=== PATIENT | female | born 1955 | race Caucasian/White ===

== ENCOUNTER 2016-12-11 09:33 | Emergency (ER) | payer BC ==
--- NOTE | 2016-12-11 09:45 | ED ---
General Adult HPI - General Chief complaint: Arrhythmia/Palpitations Stated complaint: HEART RACING, DIZZINESS Time Seen by Provider: 12/11/16 09:44 Source: patient, RN notes reviewed, old records reviewed Mode of arrival: ambulatory Limitations: no limitations - History of Present Illness Initial comments: This is a 61-year-old female the ER for evaluation. This patient presents here today for evaluation of racing heart. Patient feels like her heart is beating her chest, thumping, dehydrated. Patient does admit to alcohol use last night and daily. Patient denies any history of hypertension and cholesterol diabetes no prior ER visits for any issues, no chest pain, no shortness of breath. Patient states main issues is that her heart is racing. She can feel being her chest, palpitations, she denies any increased anxiety, no other drug abuse - Related Data Home Medications Medication Instructions Recorded Confirmed No Known Home Medications [No 12/11/16 12/11/16 Known Home Medications] Allergies Allergy/AdvReac Type Severity Reaction Status Date / Time No Known Allergies Allergy Verified 12/11/16 10:11 Review of Systems ROS Statement: Those systems with pertinent positive or pertinent negative responses have been documented in the HPI. ROS Other: All systems not noted in ROS Statement are negative. Past Medical History Past Medical History: No Reported History History of Any Multi-Drug Resistant Organisms: None Reported Past Surgical History: Section, Hysterectomy Past Psychological History: No Psychological Hx Reported Smoking Status: Current every day smoker Past Alcohol Use History: Daily Past Drug Use History: None Reported General Exam Limitations: no limitations General appearance: alert, in no apparent distress Head exam: Present: atraumatic, normocephalic, normal inspection Eye exam: Present: normal appearance, PERRL, EOMI. Absent: scleral icterus, conjunctival injection, periorbital swelling ENT exam: Present: mucous membranes dry Neck exam: Present: normal inspection. Absent: tenderness, meningismus, lymphadenopathy Respiratory exam: Present: normal lung sounds bilaterally. Absent: respiratory distress, wheezes, rales, rhonchi, stridor Cardiovascular Exam: Present: normal rhythm, tachycardia, normal heart sounds. Absent: systolic murmur, diastolic murmur, rubs, gallop, clicks GI/Abdominal exam: Present: soft, normal bowel sounds. Absent: distended, tenderness, guarding, rebound, rigid Extremities exam: Present: normal inspection, full ROM, normal capillary refill. Absent: tenderness, pedal edema, joint swelling, calf tenderness Back exam: Present: normal inspection Neurological exam: Present: alert, oriented X3, CN II-XII intact Psychiatric exam: Present: normal affect, normal mood Skin exam: Present: warm, dry, intact, normal color. Absent: rash Course Vital Signs 12/11/16 12/11/16 12/11/16 09:40 09:43 10:45 Temperature 97.5 F L Pulse Rate 117 H 100 Pulse Rate [ 117 H Operations Section Manager ] Respiratory 18 18 Rate Blood Pressure 149/70 143/69 O2 Sat by Pulse 97 98 Oximetry 12/11/16 12/11/16 11:40 12:27 Temperature 97.7 F Pulse Rate 94 97 Pulse Rate [ Operations Section Manager ] Respiratory 18 17 Rate Blood Pressure 139/76 146/66 O2 Sat by Pulse 98 98 Oximetry EKG Findings - EKG Comments: EKG Findings:: EKG shows sinus tachycardia rate 116, [place] 96, QRS 70, QTC 447 Medical Decision Making - Medical Decision Making 61 female the ER for palpitations, positive anxiety, heart racing, though symptoms have abated, patient will be discharged home - Lab Data Result diagrams: 12/11/16 09:49 12/11/16 09:49 Lab Results 12/11/16 12/11/16 12/11/16 Range/Units 09:49 09:49 09:49 WBC 10.6 (3.8-10.6) k/uL RBC 4.63 (3.80-5.40) m/uL Hgb 15.8 (11.4-16.0) gm/dL Hct 45.2 (34.0-46.0) % MCV 97.5 (80.0-100.0) fL MCH 34.0 (25.0-35.0) pg MCHC 34.9 (31.0-37.0) g/dL RDW 12.4 (11.5-15.5) % Plt Count 297 (150-450) k/uL Neutrophils % 65 % Lymphocytes % 29 % Monocytes % 3 % Eosinophils % 1 % Basophils % 1 % Neutrophils # 6.9 (1.3-7.7) k/uL Lymphocytes # 3.1 (1.0-4.8) k/uL Monocytes # 0.3 (0-1.0) k/uL Eosinophils # 0.1 (0-0.7) k/uL Basophils # 0.1 (0-0.2) k/uL PT (9.0-12.0) sec INR (<1.1) APTT (22.0-30.0) sec D-Dimer (<0.60) mg/L FEU Sodium 141 (137-145) mmol/L Potassium 4.1 (3.5-5.1) mmol/L Chloride 106 (98-107) mmol/L Carbon Dioxide 19 L (22-30) mmol/L Anion Gap 16 mmol/L BUN 13 (7-17) mg/dL Creatinine 0.69 (0.52-1.04) mg/dL Est GFR (MDRD) Af Amer >60 (>60 ml/min/1.73 sqM) Est GFR (MDRD) Non-Af >60 (>60 ml/min/1.73 sqM) Glucose 62 L (74-99) mg/dL Calcium 9.8 (8.4-10.2) mg/dL Phosphorus 3.8 (2.5-4.5) mg/dL Magnesium 1.8 (1.6-2.3) mg/dL Total Bilirubin 0.8 (0.2-1.3) mg/dL AST 23 (14-36) U/L ALT 30 (9-52) U/L Alkaline Phosphatase 60 (38-126) U/L Total Creatine Kinase 63 (30-135) U/L CK-MB (CK-2) 0.5 (0.0-2.4) ng/mL CK-MB (CK-2) Rel Index 0.8 Troponin I <0.012 (0.000-0.034) ng/mL Total Protein 7.6 (6.3-8.2) g/dL Albumin 4.5 (3.5-5.0) g/dL Lipase 125 (23-300) U/L TSH 0.477 (0.465-4.680) mIU/L Urine Color Urine Appearance (Clear) Urine pH (5.0-8.0) Ur Specific [place] (1.001-1.035) Urine Protein (Negative) Urine Glucose (UA) (Negative) Urine Ketones (Negative) Urine Blood (Negative) Urine Nitrite (Negative) Urine Bilirubin (Negative) Urine Urobilinogen (<2.0) mg/dL Ur Leukocyte Esterase (Negative) Urine RBC (0-5) /hpf Urine WBC (0-5) /hpf Ur Squamous Epith Cells (0-4) /hpf Urine Mucus (None) /hpf Serum Alcohol <10 mg/dL 12/11/16 12/11/16 Range/Units 09:49 10:40 WBC (3.8-10.6) k/uL RBC (3.80-5.40) m/uL Hgb (11.4-16.0) gm/dL Hct (34.0-46.0) % MCV (80.0-100.0) fL MCH (25.0-35.0) pg MCHC (31.0-37.0) g/dL RDW (11.5-15.5) % Plt Count (150-450) k/uL Neutrophils % % Lymphocytes % % Monocytes % % Eosinophils % % Basophils % % Neutrophils # (1.3-7.7) k/uL Lymphocytes # (1.0-4.8) k/uL Monocytes # (0-1.0) k/uL Eosinophils # (0-0.7) k/uL Basophils # (0-0.2) k/uL PT 10.3 (9.0-12.0) sec INR 1.0 (<1.1) APTT 21.8 L (22.0-30.0) sec D-Dimer <0.17 (<0.60) mg/L FEU Sodium (137-145) mmol/L Potassium (3.5-5.1) mmol/L Chloride (98-107) mmol/L Carbon Dioxide (22-30) mmol/L Anion Gap mmol/L BUN (7-17) mg/dL Creatinine (0.52-1.04) mg/dL Est GFR (MDRD) Af Amer (>60 ml/min/1.73 sqM) Est GFR (MDRD) Non-Af (>60 ml/min/1.73 sqM) Glucose (74-99) mg/dL Calcium (8.4-10.2) mg/dL Phosphorus (2.5-4.5) mg/dL Magnesium (1.6-2.3) mg/dL Total Bilirubin (0.2-1.3) mg/dL AST (14-36) U/L ALT (9-52) U/L Alkaline Phosphatase (38-126) U/L Total Creatine Kinase (30-135) U/L CK-MB (CK-2) (0.0-2.4) ng/mL CK-MB (CK-2) Rel Index Troponin I (0.000-0.034) ng/mL Total Protein (6.3-8.2) g/dL Albumin (3.5-5.0) g/dL Lipase (23-300) U/L TSH (0.465-4.680) mIU/L Urine Color Yellow Urine Appearance Clear (Clear) Urine pH 5.0 (5.0-8.0) Ur Specific [place] 1.020 (1.001-1.035) Urine Protein Trace H (Negative) Urine Glucose (UA) Negative (Negative) Urine Ketones 2+ H (Negative) Urine Blood Trace H (Negative) Urine Nitrite Negative (Negative) Urine Bilirubin Negative (Negative) Urine Urobilinogen <2.0 (<2.0) mg/dL Ur Leukocyte Esterase Negative (Negative) Urine RBC 1 (0-5) /hpf Urine WBC 1 (0-5) /hpf Ur Squamous Epith Cells 2 (0-4) /hpf Urine Mucus Rare H (None) /hpf Serum Alcohol mg/dL Disposition Clinical Impression: Palpitations, Dehydration Disposition: HOME SELF-CARE Instructions: Palpitations (ED), Dehydration (ED) Referrals: Nicole Garcia MD [Primary Care Provider] - 1-2 days
[2016-12-11] MEDS ORDERED: SODIUM CHLORIDE 0.9% 1,000 ML IV STA ×2 (09:54)
[2016-12-11] MEDS ORDERED: LORazepam 2 MG/ML SYRINGE IV STA (09:54)
[2016-12-11 10:24] LABS: Basophils # (A) 0.1 k/uL (0-0.2); Basophils % (A) 1 %; CH 33.8; CHCM 34.8; Eosinophils # (A) 0.1 k/uL (0-0.7); Eosinophils % (A) 1 %; HCT 45.2 % (34.0-46.0); HDW 2.36; HGB 15.8 gm/dL (11.4-16.0); Luc # (Auto) 0.21; Luc % (Auto) 2; Lymphocytes # (A) 3.1 k/uL (1.0-4.8); Lymphocytes % (A) 29 %; MCHC 34.9 g/dL (31.0-37.0); MCV 97.5 fL (80.0-100.0); Mean Platelet Volume 6.7; Monocytes # (A) 0.3 k/uL (0-1.0); Monocytes % (A) 3 %; Neutrophils # (A) 6.9 k/uL (1.3-7.7); Neutrophils % (A) 65 %; RBC 4.63 m/uL (3.80-5.40); RDW 12.4 % (11.5-15.5); WBC 10.6 k/uL (3.8-10.6); WBC (Perox) 10.61
[2016-12-11 10:36] LABS: ALT 30 U/L (9-52); AST 23 U/L (14-36); Alcohol <10 mg/dL; Alkaline Phosphatase 60 U/L (38-126); Anion Gap 16 mmol/L; Blood Urea Nitrogen 13 mg/dL (7-17); Calcium 9.8 mg/dL (8.4-10.2); Carbon Dioxide 19 mmol/L (22-30); Chloride 106 mmol/L (98-107); Glucose 62 mg/dL (74-99); Magnesium 1.8 mg/dL (1.6-2.3); Non-African American GFR(MDRD) >60 (>60 ml/min/1.73 sqM); Phosphorous 3.8 mg/dL (2.5-4.5); Potassium 4.1 mmol/L (3.5-5.1); Sodium 141 mmol/L (137-145); Total Bilirubin 0.8 mg/dL (0.2-1.3); Total Protein 7.6 g/dL (6.3-8.2)
[2016-12-11 10:39] LABS: Prothrombin Time 10.3 sec (9.0-12.0)
[2016-12-11 10:52] LABS: Partial Thromboplastin Time 21.8 sec (22.0-30.0)
[2016-12-11 10:54] LABS: Creatine Kinase 63 U/L (30-135)
[2016-12-11 11:05] LABS: Appearance,Urine Clear (Clear); Bilirubin,Urine Negative (Negative); Glucose,Urine (UA) Negative (Negative); Ketones,Urine 2+ (Negative); Leukocyte Esterase,Urine Negative (Negative); Mucus,Urine Rare /hpf; Nitrite,Urine Negative (Negative); Particle Count 4949; Protein,Urine Trace (Negative); RBC,Urine 1 /hpf (0-5); Squamous Epithelial Cell,Urine 2 /hpf (0-4); UA Billing (MACRO vs. MICRO) MICRO; Urobilinogen,Urine <2.0 mg/dL (<2.0); WBC,Urine 1 /hpf (0-5)
[2016-12-11 11:07] LABS: Creatine Kinase MB 0.5 ng/mL (0.0-2.4); Troponin I <0.012 ng/mL (0.000-0.034)
[2016-12-11] MEDS ORDERED: SODIUM CHLORIDE 0.9% 1,000 ML IV ONE (11:39)
[2016-12-11 12:28] VITALS: BP 146/66; PULSE 97; RESP 17; TEMP 97.7
== END 2016-12-11 12:27 | disposition home or self-care (01) ==
LOC: EC 09:33
DX: R00.2 Palpitations (principal); E86.0 Dehydration; F17.200 Nicotine dependence, unspecified, uncomplicated
CPT/HCPCS: 99285; 96374; 96361 ×2; 36415; 93005; 85379; 80053; 82550; 82553; 83690; 83735; 84100; 84443; 84484; 85025; 85610; 85730; 81001; 80320; J2060

== ENCOUNTER 2019-09-02 14:38 | Emergency (ER) | payer BC, MEDICARE ==
[2019-09-02 14:47] VITALS: TEMP 98
[2019-09-02] MEDS ORDERED: THIAMINE 100 MG/ML 2 ML VIAL IM STA (16:03)
[2019-09-02] MEDS ORDERED: LORazepam 2 MG/ML INJ IV PRN ×3 (16:03)
--- NOTE | 2019-09-02 16:07 | ED ---
Alcohol HPI - General Source: patient Mode of arrival: ambulatory Limitations: no limitations <Florentino Taylor - Last Filed: 09/02/19 20:13> <Isidro Rascon - Last Filed: 09/02/19 20:27> - General Chief Complaint: Alcohol Stated Complaint: ETOH withdrawal Time Seen by Provider: 09/02/19 14:56 - History of Present Illness Initial Comments: Patient is 64-year-old female with history of alcohol abuse presenting to emergency Department with a chief complaint of alcohol intoxication. She reports her last several years has been dealing with alcoholism. She reports over the last few weeks that she has increased in severity. Patient reports drinking almost daily. She states she woke up this morning and had 2 bottles of wine prior to ED arrival. Patient reports she is seeking further help. She does not see a therapist or psychiatrist. Denies taking any medication. Reports poor appetite and decreased urine output. (Florentino Taylor) - Related Data Home Medications Medication Instructions Recorded Confirmed Brimonidine Tartrate [Alphagan P 1 drops BOTH EYES DAILY 09/02/19 09/02/19 0.1% Ophth Soln] Clotrimazole/Betameth Cream 1 applic TOPICAL BID 09/02/19 09/02/19 [Lotrisone] Allergies Allergy/AdvReac Type Severity Reaction Status Date / Time No Known Allergies Allergy Verified 09/02/19 15:55 Review of Systems ROS Other: All systems not noted in ROS Statement are negative. <Florentino Taylor - Last Filed: 09/02/19 20:13> ROS Other: All systems not noted in ROS Statement are negative. <Isidro Rascon - Last Filed: 09/02/19 20:27> ROS Statement: Those systems with pertinent positive or pertinent negative responses have been documented in the HPI. Past Medical History Past Medical History: Hypertension History of Any Multi-Drug Resistant Organisms: None Reported Past Surgical History: Section, Hysterectomy Additional Past Surgical History / Comment(s): left foot Past Psychological History: No Psychological Hx Reported Smoking Status: Current every day smoker Past Alcohol Use History: Abuse, Daily, Heavy Past Drug Use History: None Reported <Florentino Taylor - Last Filed: 09/02/19 20:13> General Exam Limitations: no limitations General appearance: alert, in no apparent distress Head exam: Present: atraumatic, normocephalic, normal inspection Eye exam: Present: normal appearance, PERRL, EOMI Pupils: Present: normal accommodation ENT exam: Present: normal exam, normal oropharynx, mucous membranes dry, TM's normal bilaterally, normal external ear exam Neck exam: Present: normal inspection, full ROM Respiratory exam: Present: normal lung sounds bilaterally Cardiovascular Exam: Present: normal rhythm, tachycardia, normal heart sounds GI/Abdominal exam: Present: soft. Absent: distended, tenderness Extremities exam: Present: normal inspection, full ROM Back exam: Present: normal inspection, full ROM Neurological exam: Present: alert, oriented X3 Psychiatric exam: Present: normal affect, normal mood Skin exam: Present: warm, dry, intact, normal color <Florentino Taylor - Last Filed: 09/02/19 20:13> Course Vital Signs 09/02/19 09/02/19 09/02/19 14:42 15:10 17:05 Temperature 98.0 F Pulse Rate 125 H 98 Respiratory 20 24 15 Rate Blood Pressure 125/84 166/100 O2 Sat by Pulse 97 97 Oximetry 09/02/19 18:00 Temperature Pulse Rate 111 H Respiratory 20 Rate Blood Pressure 152/98 O2 Sat by Pulse 96 Oximetry Medical Decision Making <Florentino Taylor - Last Filed: 09/02/19 20:13> <Isidro Rascon - Last Filed: 09/02/19 20:27> - Medical Decision Making Patient is 64-year-old female with history of alcoholism presenting to the emergency department with a chief complaint alcohol intoxication. Patient states she wants help to begin rehab. Denies any suicidal, homicidal thoughts or ideations. Physical examination unremarkable aside from very mild tremor. Patient has a BAT of 0.150 . Patient waiting to be evaluated by EPS when sober. At this time patient will be signed off to Dr. Rascon (Florentino Taylor) Patient care signed out to me by previous shift physician construction project assistant, Florentino Taylor. Briefly, patient is an alcoholic presents today with alcohol intoxication. Plan at follow-up with EPS recommendations. Patient is not suicidal homicidal or showing any psychotic features. She does not have any visual or auditory hallucinations. Patient's, cooperative. Patient is evaluated by EPS given outpatient resources. Patient will be discharged. (Isidro Lyman) Disposition <Florentino Taylor - Last Filed: 09/02/19 20:13> Is patient prescribed a controlled substance at d/c from ED?: No Time of Disposition: 20:27 <Isidro Rascon - Last Filed: 09/02/19 20:27> Clinical Impression: Alcoholic intoxication Disposition: HOME SELF-CARE Condition: Good Instructions (If sedation given, give patient instructions): Alcohol Intoxication (ED) Referrals: Nicole Garcia MD [Primary Care Provider] - 1-2 days
[2019-09-02 20:40] VITALS: BP 161/85; PULSE 120; RESP 18
[2019-09-03] MEDS ORDERED: THIAMINE 100 MG TAB PO SCH (07:30)
== END 2019-09-02 21:15 | disposition home or self-care (01) ==
LOC: EC 14:38
DX: F10.129 Alcohol abuse with intoxication, unspecified (principal); I10 Essential (primary) hypertension; F17.200 Nicotine dependence, unspecified, uncomplicated
CPT/HCPCS: 82075; 99284; 96374; 96372; J2060; J3411

== ENCOUNTER 2021-02-02 19:40 | Emergency (ER) | payer MEDICARE, OTHER ==
[2021-02-02 19:58] VITALS: TEMP 97.8
[2021-02-02] MEDS ORDERED: SODIUM CHLORIDE 0.9% 1,000 ML IV ONE (20:14)
--- NOTE | 2021-02-02 20:22 | ED ---
General Adult HPI - General Chief complaint: Arrhythmia/Palpitations Stated complaint: Fast heart rate Time Seen by Provider: 02/02/21 20:00 Source: patient, family, RN notes reviewed, old records reviewed Mode of arrival: wheelchair Limitations: no limitations - History of Present Illness Initial comments: 66-year-old presenting with racing heart. Patient denies chest pain. Denies difficulty breathing or shortness of breath. Denies fever. Denies lower extremity pain or swelling. Patient states she has had some similar symptoms in the past. She does feel dehydrated all she states she has been drinking plenty of water. No vomiting or diarrhea. Patient takes Norvasc for blood pressure, no other prescription medications. She does drink alcohol daily but states she has typically 2 drinks. - Related Data Home Medications Medication Instructions Recorded Confirmed Brimonidine Tartrate [Alphagan P 1 drops BOTH EYES DAILY 09/02/19 09/02/19 0.1% Ophth Soln] Clotrimazole/Betameth Cream 1 applic TOPICAL BID 09/02/19 09/02/19 [Lotrisone] Allergies Allergy/AdvReac Type Severity Reaction Status Date / Time No Known Allergies Allergy Verified 02/02/21 19:54 Review of Systems ROS Statement: Those systems with pertinent positive or pertinent negative responses have been documented in the HPI. ROS Other: All systems not noted in ROS Statement are negative. Past Medical History Past Medical History: Hypertension History of Any Multi-Drug Resistant Organisms: None Reported Past Surgical History: Section, Hysterectomy, Orthopedic Surgery Additional Past Surgical History / Comment(s): left foot Past Psychological History: Anxiety, Depression Smoking Status: Current every day smoker Past Alcohol Use History: Abuse, Daily, Heavy Past Drug Use History: None Reported General Exam Limitations: no limitations General appearance: alert, anxious Head exam: Present: atraumatic, normocephalic Eye exam: Present: normal appearance, PERRL ENT exam: Present: mucous membranes dry Neck exam: Present: normal inspection. Absent: tenderness, meningismus Respiratory exam: Present: normal lung sounds bilaterally. Absent: respiratory distress, wheezes Cardiovascular Exam: Present: normal rhythm, tachycardia GI/Abdominal exam: Present: soft. Absent: distended, tenderness, guarding Extremities exam: Present: normal inspection, normal capillary refill. Absent: pedal edema, calf tenderness Neurological exam: Present: alert, oriented X3, CN II-XII intact. Absent: motor sensory deficit Psychiatric exam: Present: anxious Skin exam: Present: warm, dry, intact. Absent: cyanosis, diaphoretic Course Vital Signs 02/02/21 02/02/21 02/02/21 19:54 20:35 21:00 Temperature 97.8 F Pulse Rate 115 H 107 H Pulse Rate [ 107 H Cycle Repairer ] Respiratory 18 16 Rate Blood Pressure 148/80 O2 Sat by Pulse 95 Oximetry EKG Findings - EKG Comments: EKG Findings:: EKG: Sinus tachycardia rate of 117, [place] interval is short at 94, QRS duration 72, QTC 451, no ST segment elevation. Medical Decision Making - Medical Decision Making 66-year-old female with palpitations. Patient is in the sinus tachycardia with no ischemic changes. Chest x-ray is clear. She has a normal CBC, normal CMP, normal thyroid study. She has normal urinalysis. She does have a mildly elevated blood glucose but not significantly abnormal. She feels better after fluid hydration. She will monitor symptoms at home. She will follow with the primary care physician. 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 - Lab Data Result diagrams: 02/02/21 20:23 02/02/21 20:23 Lab Results 02/02/21 02/02/21 02/02/21 Range/Units 20:23 20:23 20:23 WBC 7.2 (3.8-10.6) k/uL RBC 4.51 (3.80-5.40) m/uL Hgb 15.0 (11.4-16.0) gm/dL Hct 43.3 (34.0-46.0) % MCV 96.0 (80.0-100.0) fL MCH 33.2 (25.0-35.0) pg MCHC 34.6 (31.0-37.0) g/dL RDW 11.6 (11.5-15.5) % Plt Count 310 (150-450) k/uL MPV 6.7 Neutrophils % 62 % Lymphocytes % 29 % Monocytes % 4 % Eosinophils % 2 % Basophils % 1 % Neutrophils # 4.5 (1.3-7.7) k/uL Lymphocytes # 2.1 (1.0-4.8) k/uL Monocytes # 0.3 (0-1.0) k/uL Eosinophils # 0.1 (0-0.7) k/uL Basophils # 0.1 (0-0.2) k/uL PT 9.9 (9.0-12.0) sec INR 0.9 (<1.2) APTT 22.5 (22.0-30.0) sec Sodium 139 (137-145) mmol/L Potassium 4.0 (3.5-5.1) mmol/L Chloride 102 (98-107) mmol/L Carbon Dioxide 26 (22-30) mmol/L Anion Gap 11 mmol/L BUN 13 (7-17) mg/dL Creatinine 0.58 (0.52-1.04) mg/dL Est GFR (CKD-EPI)AfAm >90 (>60 ml/min/1.73 sqM) Est GFR (CKD-EPI)NonAf >90 (>60 ml/min/1.73 sqM) Glucose 138 H (74-99) mg/dL Calcium 10.6 H (8.4-10.2) mg/dL Magnesium 1.9 (1.6-2.3) mg/dL Total Bilirubin 0.3 (0.2-1.3) mg/dL AST 23 (14-36) U/L ALT 16 (4-34) U/L Alkaline Phosphatase 60 (38-126) U/L Troponin I (0.000-0.034) ng/mL Total Protein 7.5 (6.3-8.2) g/dL Albumin 4.7 (3.5-5.0) g/dL TSH 1.560 (0.465-4.680) mIU/L Urine Color Urine Appearance (Clear) Urine pH (5.0-8.0) Ur Specific [place] (1.001-1.035) Urine Protein (Negative) Urine Glucose (UA) (Negative) Urine Ketones (Negative) Urine Blood (Negative) Urine Nitrite (Negative) Urine Bilirubin (Negative) Urine Urobilinogen (<2.0) mg/dL Ur Leukocyte Esterase (Negative) Serum Alcohol <10 mg/dL 02/02/21 02/02/21 Range/Units 20:23 20:23 WBC (3.8-10.6) k/uL RBC (3.80-5.40) m/uL Hgb (11.4-16.0) gm/dL Hct (34.0-46.0) % MCV (80.0-100.0) fL MCH (25.0-35.0) pg MCHC (31.0-37.0) g/dL RDW (11.5-15.5) % Plt Count (150-450) k/uL MPV Neutrophils % % Lymphocytes % % Monocytes % % Eosinophils % % Basophils % % Neutrophils # (1.3-7.7) k/uL Lymphocytes # (1.0-4.8) k/uL Monocytes # (0-1.0) k/uL Eosinophils # (0-0.7) k/uL Basophils # (0-0.2) k/uL PT (9.0-12.0) sec INR (<1.2) APTT (22.0-30.0) sec Sodium (137-145) mmol/L Potassium (3.5-5.1) mmol/L Chloride (98-107) mmol/L Carbon Dioxide (22-30) mmol/L Anion Gap mmol/L BUN (7-17) mg/dL Creatinine (0.52-1.04) mg/dL Est GFR (CKD-EPI)AfAm (>60 ml/min/1.73 sqM) Est GFR (CKD-EPI)NonAf (>60 ml/min/1.73 sqM) Glucose (74-99) mg/dL Calcium (8.4-10.2) mg/dL Magnesium (1.6-2.3) mg/dL Total Bilirubin (0.2-1.3) mg/dL AST (14-36) U/L ALT (4-34) U/L Alkaline Phosphatase (38-126) U/L Troponin I <0.012 (0.000-0.034) ng/mL Total Protein (6.3-8.2) g/dL Albumin (3.5-5.0) g/dL TSH (0.465-4.680) mIU/L Urine Color Colorless Urine Appearance Clear (Clear) Urine pH 7.0 (5.0-8.0) Ur Specific [place] 1.006 (1.001-1.035) Urine Protein Negative (Negative) Urine Glucose (UA) Negative (Negative) Urine Ketones Trace H (Negative) Urine Blood Negative (Negative) Urine Nitrite Negative (Negative) Urine Bilirubin Negative (Negative) Urine Urobilinogen <2.0 (<2.0) mg/dL Ur Leukocyte Esterase Negative (Negative) Serum Alcohol mg/dL Disposition Clinical Impression: Sinus tachycardia Disposition: HOME SELF-CARE Condition: Good Instructions (If sedation given, give patient instructions): Heart Palpitations (ED) Is patient prescribed a controlled substance at d/c from ED?: No Referrals: Nicole Garcia MD [Primary Care Provider] - 1-2 days Time of Disposition: 21:41
[2021-02-02 20:36] LABS: Basophils # (A) 0.1 k/uL (0-0.2); Basophils % (A) 1 %; Eosinophils # (A) 0.1 k/uL (0-0.7); Eosinophils % (A) 2 %; HCT 43.3 % (34.0-46.0); Lymphocytes # (A) 2.1 k/uL (1.0-4.8); Lymphocytes % (A) 29 %; MCH 33.2 pg (25.0-35.0); MCHC 34.6 g/dL (31.0-37.0); Mean Platelet Volume 6.7; Monocytes # (A) 0.3 k/uL (0-1.0); Monocytes % (A) 4 %; Neutrophils # (A) 4.5 k/uL (1.3-7.7); Neutrophils % (A) 62 %; Platelet Count 310 k/uL (150-450); RBC 4.51 m/uL (3.80-5.40); RDW 11.6 % (11.5-15.5); WBC 7.2 k/uL (3.8-10.6)
[2021-02-02 20:47] LABS: ALT 16 U/L (4-34); AST 23 U/L (14-36); African American GFR (CKD) >90 (>60 ml/min/1.73 sqM); Albumin 4.7 g/dL (3.5-5.0); Alcohol <10 mg/dL; Alkaline Phosphatase 60 U/L (38-126); Anion Gap 11 mmol/L; Blood Urea Nitrogen 13 mg/dL (7-17); Calcium 10.6 mg/dL (8.4-10.2); Carbon Dioxide 26 mmol/L (22-30); Chloride 102 mmol/L (98-107); Glucose 138 mg/dL (74-99); Magnesium 1.9 mg/dL (1.6-2.3); Non-African American GFR(CKD) >90 (>60 ml/min/1.73 sqM); Sodium 139 mmol/L (137-145); Total Bilirubin 0.3 mg/dL (0.2-1.3); Total Protein 7.5 g/dL (6.3-8.2)
[2021-02-02 21:04] LABS: Appearance,Urine Clear (Clear); Bilirubin,Urine Negative (Negative); Blood,Urine Negative (Negative); Color,Urine Colorless; Glucose,Urine (UA) Negative (Negative); Ketones,Urine Trace (Negative); Leukocyte Esterase,Urine Negative (Negative); Nitrite,Urine Negative (Negative); Protein,Urine Negative (Negative); Specific Gravity,Urine 1.006 (1.001-1.035); Urobilinogen,Urine <2.0 mg/dL (<2.0)
[2021-02-02 21:11] LABS: INR 0.9 (<1.2); Partial Thromboplastin Time 22.5 sec (22.0-30.0); Prothrombin Time 9.9 sec (9.0-12.0)
--- NOTE | 2021-02-02 21:17 | XR ---
EXAMINATION TYPE: XR chest 2V DATE OF EXAM: 02/02/2021 COMPARISON: NONE HISTORY: Tachycardia TECHNIQUE: 2 views FINDINGS: Heart and mediastinum are normal. There is some linear density right lung base. There are n o hilar masses. There are chest leads. Costophrenic angles show no fluid. IMPRESSION: Mild subsegmental atelectasis right lung base. Normal heart.
[2021-02-02] MEDS ORDERED: SODIUM CHLORIDE 0.9% 500 ML 500 ML IV ONE (21:32)
[2021-02-02 22:06] VITALS: BP 159/78; PULSE 98; RESP 18
== END 2021-02-02 22:10 | disposition home or self-care (01) ==
LOC: EC 19:40
DX: R00.0 Tachycardia, unspecified (principal); R00.2 Palpitations; I10 Essential (primary) hypertension; F17.200 Nicotine dependence, unspecified, uncomplicated; F32.9 Major depressive disorder, single episode, unspecified
CPT/HCPCS: 36415; 93005; 80053; 83735; 84443; 84484; 85025; 85610; 85730; 81003; 71046; 99285; 96360; 96361; G0480; 80320

== ENCOUNTER 2023-09-09 10:20 | Observation (INO) | payer MEDICARE, OTHER ==
[2023-09-09] MEDS ORDERED: SODIUM CHLORIDE 0.9% 1,000 ML IV STA (10:41)
[2023-09-09] MEDS ORDERED: LORazepam 1 MG TAB PO PRN ×3 (10:42)
[2023-09-09] MEDS ORDERED: LORazepam 0.5 MG TAB PO PRN (10:42)
[2023-09-09] MEDS ORDERED: THIAMINE 100 MG/ML 2 ML VIAL IM STA (10:42)
[2023-09-09] MEDS ORDERED: LORazepam 2 MG/ML INJ IV PRN (10:42)
--- NOTE | 2023-09-09 11:05 | ED ---
Alcohol HPI - General Chief Complaint: Recheck/Abnormal Lab/Rx Stated Complaint: detox Time Seen by Provider: 09/09/23 10:32 Source: patient, family, RN notes reviewed Mode of arrival: ambulatory Limitations: no limitations - History of Present Illness Initial Comments: This is a 68-year-old female who presents to the emergency department for alcohol withdrawals. States that she drinks 1.5 bottles of wine each day and has done so for many years. This morning she had 1.5 glasses of wine. She went to check herself into [facility] today, however they said that she was too weak and needed to go to the emergency department for withdrawals/detox. Her family reports increasing generalized weakness, and she is unable to ambulate without assistance at this point. She did go through detox at home 2 years ago with benzodiazepines, which was effective, however she has never been to rehab. She was able to remain sober for a period of time afterwards, however her son was in a bad motorcycle accident and almost . This triggered her to begin drinking again. Her goal is to go through withdrawals safely and then go home and remain sober. Denies any history of withdrawal seizures, however she does develop significant tremors when she does not have alcohol. Her family also notes that she is not eating and she has no appetite, which they believe is contributing to the weakness. Patient denies any nausea or abdominal pain. Other than feeling weak, she denies any complaints. Complaint: alcohol withdrawal - Related Data Home Medications Medication Instructions Recorded Confirmed Brimonidine Tartrate [Alphagan P 1 drops BOTH EYES DAILY 09/02/19 09/02/19 0.1% Ophth Soln] Clotrimazole/Betameth Cream 1 applic TOPICAL BID 09/02/19 09/02/19 [Lotrisone] Allergies Allergy/AdvReac Type Severity Reaction Status Date / Time No Known Allergies Allergy Verified 09/09/23 10:31 Review of Systems ROS Statement: Those systems with pertinent positive or pertinent negative responses have been documented in the HPI. ROS Other: All systems not noted in ROS Statement are negative. Past Medical History Past Medical History: Hypertension History of Any Multi-Drug Resistant Organisms: None Reported Past Surgical History: Section, Hysterectomy, Orthopedic Surgery Additional Past Surgical History / Comment(s): left foot Past Psychological History: Anxiety, Depression Smoking Status: Current every day smoker Past Alcohol Use History: Abuse, Daily, Heavy Past Drug Use History: None Reported General Exam Limitations: no limitations General appearance: alert, in no apparent distress Head exam: Present: atraumatic, normocephalic, normal inspection Eye exam: Present: normal appearance, PERRL, EOMI. Absent: scleral icterus, conjunctival injection, periorbital swelling Respiratory exam: Present: normal lung sounds bilaterally. Absent: respiratory distress, wheezes, rales, rhonchi, stridor Cardiovascular Exam: Present: regular rate, normal rhythm, normal heart sounds. Absent: systolic murmur, diastolic murmur, rubs, gallop, clicks Neurological exam: Present: alert, oriented X3, CN II-XII intact, other (Tremors) Psychiatric exam: Present: normal affect, normal mood Skin exam: Present: warm, dry, intact, normal color. Absent: rash Course Vital Signs 09/09/23 09/09/23 10:25 13:46 Temperature 98 F Pulse Rate 105 H 100 Respiratory 18 18 Rate Blood Pressure 126/75 140/90 O2 Sat by Pulse 98 97 Oximetry Medical Decision Making - Medical Decision Making This is a 68-year-old female who presents to the emergency department for alcohol withdrawals and weakness. Was pt. sent in by a medical professional or institution? @ -No Did you speak to anyone other than the patient for history? @ -Her family provided the information about the patient being weak and not eating. Did you review nursing and triage notes? @ -Yes, and I agree, it is accurate with regards to the patient's symptoms. Were old charts reviewed? @ -No Differential Diagnosis? @ -Differential Weakness: Hypoglycemia, shock, sepsis, hyponatremia, anemia, infection, MO, ETOH, adverse medicine reaction, overdose, stroke, this is not meant to be an all-inclusive list. EKG interpreted by me (3pts min.)? @ -Not obtained X-rays interpreted by me (1pt min.)? @ -Not obtained CT interpreted by me (1pt min.)? @ -Not obtained U/S interpreted by me (1pt. min.)? @ -Not obtained What testing was considered but not performed? (CT, X-rays, U/S, labs)? Why? @ -None What meds were considered but not given? Why? @ -None Did you discuss the management of the patient with other professionals? @ -Yes, Dr. Mai, who accepts the patient for admission. Did you reconcile home meds? @ -No Was smoking cessation discussed for >3mins.? @ -I discussed smoking cessation for greater than 3 minutes. The risk of smoking were discussed with the patient including but not limited to risks of cancer, stroke, coronary artery disease and COPD. Also discussed with patient were multiple methods of quitting smoking. Lastly we discussed the financial cost of smoking. Was critical care preformed (if so, how long)? @ -No Were there social determinants of health that impacted care today? How? (Homelessness, low income, unemployed, alcoholism, drug addiction, transportation, low edu. Level, literacy, decrease access to med. care, assisted, rehab)? @ -Alcoholism, contributing to her weakness and leading to the need to detox, which brought her here today. Was there de-escalation of care discussed even if they declined? (Discuss DNR or withdrawal of care, Hospice)? @ -No What co-morbidities impacted this encounter? (DM, HTN, Smoking, COPD, CAD, Cancer, CVA, Hep., AIDS, mental health diagnosis, sleep apnea, morbid obesity)? @ -HTN, alcoholism, smoking Was patient admitted / discharged? @ -Admitted. Lab work obtained revealing elevated liver enzymes, consistent with the patient's history of alcohol abuse. She also has mild hyponatremia. UA is consistent with contamination but was not suggestive of infection. UDS positive for marijuana and alcohol level is 123. Patient given a liter bolus of IV fluids. CIWA protocol and seizure precautions were initiated. Initial CIWA score was 8 and patient had notable tremors on exam. Patient admitted to medicine for alcohol withdrawals and generalized weakness. Consult placed for PT/OT as well. Undiagnosed new problem with uncertain prognosis? @ -None Drug Therapy requiring intensive monitoring for toxicity (Heparin, Nitro, Insulin, Cardizem)? @ -None Were any procedures done? @ -None Diagnosis/symptom? @ -Alcohol withdrawals Acute, or Chronic, or Acute on Chronic? @ -Acute Uncomplicated (without systemic symptoms) or Complicated (systemic symptoms)? @ -Complicated Side effects of treatment? @ -None Exacerbation, Progression, or Severe Exacerbation] @ -Not applicable Poses a threat to life or bodily function? @ -Yes, this could lead to DTs and seizures, which could potentially be life threatening. This case was discussed in detail with the attending ED physician, Dr. Bradford. Presentation, findings, and treatment plan discussed in detail as well. - Lab Data Result diagrams: 09/09/23 10:42 09/09/23 10:42 Lab Results 09/09/23 09/09/23 09/09/23 Range/Units 10:42 10:42 11:06 WBC 4.7 (3.8-10.6) k/uL RBC 3.96 (3.80-5.40) m/uL Hgb 15.3 (11.4-16.0) gm/dL Hct 43.6 (34.0-46.0) % MCV 110.1 H (80.0-100.0) fL MCH 38.8 H (25.0-35.0) pg MCHC 35.2 (31.0-37.0) g/dL RDW 12.8 (11.5-15.5) % Plt Count 154 (150-450) k/uL MPV 8.7 Neutrophils % 65 % Lymphocytes % 27 % Monocytes % 6 % Eosinophils % 0 % Basophils % 1 % Neutrophils # 3.1 (1.3-7.7) k/uL Lymphocytes # 1.3 (1.0-4.8) k/uL Monocytes # 0.3 (0-1.0) k/uL Eosinophils # 0.0 (0-0.7) k/uL Basophils # 0.0 (0-0.2) k/uL Manual Slide Review Performed Macrocytosis Marked A Sodium 134 L (137-145) mmol/L Potassium 4.6 (3.5-5.1) mmol/L Chloride 101 (98-107) mmol/L Carbon Dioxide 21 L (22-30) mmol/L Anion Gap 12 mmol/L BUN 6 L (7-17) mg/dL Creatinine 0.66 (0.52-1.04) mg/dL Est GFR (CKD-EPI)AfAm >90 (>60 ml/min/1.73 sqM) Est GFR (CKD-EPI)NonAf >90 (>60 ml/min/1.73 sqM) Glucose 90 (74-99) mg/dL Calcium 9.1 (8.4-10.2) mg/dL Phosphorus 4.2 (2.5-4.5) mg/dL Magnesium 2.0 (1.6-2.3) mg/dL Total Bilirubin 0.7 (0.2-1.3) mg/dL AST 178 H (14-36) U/L ALT 111 H (4-34) U/L Alkaline Phosphatase 124 (38-126) U/L Creatine Kinase 201 H (30-135) U/L Total Protein 6.4 (6.3-8.2) g/dL Albumin 3.7 (3.5-5.0) g/dL Urine Color Yellow Urine Appearance Cloudy H (Clear) Urine pH 5.0 (5.0-8.0) Ur Specific Martha 1.018 (1.001-1.035) Urine Protein Trace H (Negative) Urine Glucose (UA) Negative (Negative) Urine Ketones 1+ H (Negative) Urine Blood Negative (Negative) Urine Nitrite Negative (Negative) Urine Bilirubin Negative (Negative) Urine Urobilinogen <2.0 (<2.0) mg/dL Ur Leukocyte Esterase Negative (Negative) Urine RBC 1 (0-5) /hpf Urine WBC 3 (0-5) /hpf Ur Squamous Epith Cells 13 H (0-4) /hpf Urine Bacteria Rare H (None) /hpf Hyaline Casts 10 H (0-2) /lpf Urine Mucus Many H (None) /hpf Urine Opiates Screen Not Detected (NotDetected) Ur Oxycodone Screen Not Detected (NotDetected) Urine Methadone Screen Not Detected (NotDetected) Ur Barbiturates Screen Not Detected (NotDetected) U Tricyclic Antidepress Not Detected (NotDetected) Ur Phencyclidine Scrn Not Detected (NotDetected) Ur Amphetamines Screen Not Detected (NotDetected) U Methamphetamines Scrn Not Detected (NotDetected) U Benzodiazepines Scrn Not Detected (NotDetected) Urine Cocaine Screen Not Detected (NotDetected) U Marijuana (THC) Screen Detected H (NotDetected) Serum Alcohol 123 mg/dL Disposition Clinical Impression: Nicotine dependence, Alcohol abuse with withdrawal, Weakness Disposition: ADMITTED IP TO THIS [facility] Time of Disposition: 15:30
[2023-09-09 11:37] LABS: Amphetamine Screen,Urine Not Detected (NotDetected); Barbiturate Screen,Urine Not Detected (NotDetected); Benzodiazepines Screen,Urine Not Detected (NotDetected); Cocaine Screen,Urine Not Detected (NotDetected); Methadone Screen, Urine Not Detected (NotDetected); Opiate Screen,Urine Not Detected (NotDetected); Oxycodone Screen, Urine Not Detected (NotDetected); Phencyclidine Screen,Urine Not Detected (NotDetected); Tricyclic Antidepressant,Urine Not Detected (NotDetected); Urn Cannabinoid Scrn Detected (NotDetected)
[2023-09-09 11:42] LABS: Appearance,Urine Cloudy (Clear); Bacteria,Urine Rare /hpf; Bilirubin,Urine Negative (Negative); Blood,Urine Negative (Negative); Color,Urine Yellow; Glucose,Urine (UA) Negative (Negative); Hyaline Casts,Urine 10 /lpf (0-2); Ketones,Urine 1+ (Negative); Leukocyte Esterase,Urine Negative (Negative); Mucus,Urine Many /hpf; Nitrite,Urine Negative (Negative); Protein,Urine Trace (Negative); RBC,Urine 1 /hpf (0-5); Specific Gravity,Urine 1.018 (1.001-1.035); Squamous Epithelial Cell,Urine 13 /hpf (0-4); Urobilinogen,Urine <2.0 mg/dL (<2.0); WBC,Urine 3 /hpf (0-5)
[2023-09-09 11:52] LABS: Basophils % (A) 1 %; Eosinophils % (A) 0 %; HCT 43.6 % (34.0-46.0); HGB 15.3 gm/dL (11.4-16.0); Lymphocytes # (A) 1.3 k/uL (1.0-4.8); Lymphocytes % (A) 27 %; MCH 38.8 pg (25.0-35.0); MCHC 35.2 g/dL (31.0-37.0); MCV 110.1 fL (80.0-100.0); Macrocytosis Marked; Mean Platelet Volume 8.7; Monocytes # (A) 0.3 k/uL (0-1.0); Monocytes % (A) 6 %; Neutrophils # (A) 3.1 k/uL (1.3-7.7); Neutrophils % (A) 65 %; Platelet Count 154 k/uL (150-450); RBC 3.96 m/uL (3.80-5.40); RDW 12.8 % (11.5-15.5); WBC 4.7 k/uL (3.8-10.6)
[2023-09-09 11:56] LABS: ALT 111 U/L (4-34); AST 178 U/L (14-36); African American GFR (CKD) >90 (>60 ml/min/1.73 sqM); Albumin 3.7 g/dL (3.5-5.0); Alkaline Phosphatase 124 U/L (38-126); Anion Gap 12 mmol/L; Blood Urea Nitrogen 6 mg/dL (7-17); Calcium 9.1 mg/dL (8.4-10.2); Carbon Dioxide 21 mmol/L (22-30); Chloride 101 mmol/L (98-107); Creatine Kinase 201 U/L (30-135); Glucose 90 mg/dL (74-99); Non-African American GFR(CKD) >90 (>60 ml/min/1.73 sqM); Phosphorus 4.2 mg/dL (2.5-4.5); Potassium 4.6 mmol/L (3.5-5.1); Sodium 134 mmol/L (137-145); Total Bilirubin 0.7 mg/dL (0.2-1.3); Total Protein 6.4 g/dL (6.3-8.2)
[2023-09-09 11:59] LABS: Alcohol 123 mg/dL
[2023-09-09] MEDS: LORazepam 1 MG TAB PO PRN ×2 (12:29→16:36)
[2023-09-09] MEDS ORDERED: NALOXONE 0.4 MG/ML 1 ML VIAL IV PRN (15:43)
[2023-09-09] MEDS ORDERED: ACETAMINOPHEN TAB 325 MG TAB PO PRN (15:43)
[2023-09-09] MEDS ORDERED: ONDANSETRON 4 MG/2 ML VIAL IVP PRN (15:43)
[2023-09-09] MEDS ORDERED: KETOROLAC 15 MG/ML 1 ML VIAL IVP PRN (15:43)
[2023-09-09] MEDS: BRIMONIDINE TARTRATE 0.2% DROPS 5 ML BTL BOTH EYES SCH (20:47)
[2023-09-10] MEDS ORDERED: SODIUM CHLORIDE 0.9% 1,000 ML IV SCH (09:00)
[2023-09-10] MEDS ORDERED: THIAMINE 100 MG TAB PO SCH (09:00)
[2023-09-10] MEDS ORDERED: MULTIVITAMINS, THERA 1 EACH TAB PO SCH (09:00)
[2023-09-10] MEDS ORDERED: LORazepam 2 MG/ML INJ IV PRN ×3 (09:47)
--- NOTE | 2023-09-10 10:32 | CT ---
EXAMINATION TYPE: CT brain cspine wo con DATE OF EXAM: 09/10/2023 COMPARISON: None HISTORY: AMS, detoxing, pt was combative and uncooperative best images possible CT DLP: 1332.7 mGycm, Automated exposure control for dose reduction was used. CONTRAST: None CT of the brain is performed utilizing 3 mm thick sections through the posterior fossa and 3 mm thick sections through the remaining calvarium. Study is performed within 24 hours of arrival to the hospital. There is a small area of increased density along the right tentorium measuring approximately 1.3 cm in diameter 0.3 cm in thickness could be an acute small subdural hematoma. No significant mass effect on the adjacent brain is evident. No mass lesion is evident. No acute infarcts are evident. Ventricles and sulci are appropriate for the patient age. Paranasal sinuses and mastoid air cells within the [id number] are clear. IMPRESSIONS: 1. Small acute subdural hematoma along the right tentorium. Report was called to the ER physician by Dr. Castro by telephone 1027 hours 09/10/2023. CT cervical spine. COMPARISON: None CT of the cervical spine is performed in the axial plane at 2 mm thick sections. Reconstructed image s in the coronal, and sagittal plane are reviewed on the computer. Motion artifact at the C3 4 level limits evaluation. No acute fractures are evident. Vertebral body alignment is normal. Diffuse narrowing of disc height is present throughout the cervical spine. Vertebral body heights are preserved. No spinal canal stenosis is evident. C5-6 foraminal narrowing from uncovertebral joint disease present. C4-5 foraminal narrowing likely pr esent. C3-4 levels not well evaluated IMPRESSION: 1. Diffuse degenerative disc changes. 2. No acute osseous abnormality cervical spine. 3. Some limitation due to motion artifact.
[2023-09-10 11:11] VITALS: BP 133/76; PULSE 115; RESP 20; TEMP 98
[2023-09-10 11:30] LABS: Basophils % (A) 0 %; Eosinophils % (A) 0 %; HCT 39.7 % (34.0-46.0); HGB 13.8 gm/dL (11.4-16.0); Lymphocytes % (A) 19 %; MCH 38.1 pg (25.0-35.0); MCHC 34.7 g/dL (31.0-37.0); MCV 109.6 fL (80.0-100.0); Macrocytosis Marked; Mean Platelet Volume 8.9; Monocytes # (A) 0.3 k/uL (0-1.0); Monocytes % (A) 5 %; Neutrophils % (A) 75 %; Platelet Count 126 k/uL (150-450); RBC 3.62 m/uL (3.80-5.40); RDW 13.5 % (11.5-15.5); WBC 5.3 k/uL (3.8-10.6)
[2023-09-10 11:36] LABS: ALT 88 U/L (4-34); AST 132 U/L (14-36); African American GFR (CKD) >90 (>60 ml/min/1.73 sqM); Albumin 3.4 g/dL (3.5-5.0); Albumin/Globulin Ratio 1.3; Alkaline Phosphatase 112 U/L (38-126); Anion Gap 9 mmol/L; Blood Urea Nitrogen 9 mg/dL (7-17); Calcium 8.8 mg/dL (8.4-10.2); Carbon Dioxide 20 mmol/L (22-30); Chloride 104 mmol/L (98-107); Globulin 2.6 g/dL; Glucose 76 mg/dL (74-99); Magnesium 1.9 mg/dL (1.6-2.3); Non-African American GFR(CKD) 89 (>60 ml/min/1.73 sqM); Potassium 4.3 mmol/L (3.5-5.1); Sodium 133 mmol/L (137-145)
[2023-09-10] MEDS: BRIMONIDINE TARTRATE 0.2% DROPS 5 ML BTL BOTH EYES SCH (11:42)
--- NOTE | 2023-09-10 15:09 | P.HPIM ---
History of Present Illness H&P Date: 09/10/23 Chief Complaint: Alcohol withdrawal * 68-year-old patient with past medical history significant for hypertension, history of alcohol use disorder was brought into the emergency department with intention to detox. Patient was checked again to [facility] early in the day however she was noted to be too weak and was titrated to emergency for withdrawal detox and physical therapy assessment. Patient has been progressively weak and unable to ambulate family which has been ongoing for several weeks. Patient previously had gone through detox which was effective however she never did rehab after that. * Patient is noted to be drinking about 1-1/2 bottles of wine every day and has been going on for multiple years. * The time of presentation in ER initial workup obtained included CBC which were WBC of 4.7 hemoglobin 15.3 platelet 154 * Serum chemistry obtained sodium 134 potassium 4.6B UN 6 creatinine 0.66 AST 178 ALT 111. Induction obtained positive for marijuana serum alcohol level 123 * Patient was admitted with alcohol withdrawal protocol * During the hospitalization patient remained in ER, patient had been having multiple falls on admission was noted to have multiple skin abrasions patient had another episode in ER as well. A CT head and cervical spine was obtained to rule out acute intracranial process * CT head did show intracranial subdural hemorrhage * son was contacted and notified about the results and the potential need for transfer Deb Parada was initiated in ER and patient to be transferred to [facility] REVIEW OF SYSTEMS: Generalized weakness, tremors, CONSTITUTIONAL: No fever, no malaise, no fatigue. HEENT: No recent visual problems or hearing problems. Denied any sore throat. CARDIOVASCULAR: No chest pain, orthopnea, PND, no palpitations, no syncope. PULMONARY: No shortness of breath, no cough, no hemoptysis. GASTROINTESTINAL: No diarrhea, no nausea, no vomiting, no abdominal pain. NEUROLOGICAL: No headaches, no weakness, no numbness. HEMATOLOGICAL: Denies any bleeding or petechiae. GENITOURINARY: Denies any burning micturition, frequency, or urgency. MUSCULOSKELETAL/RHEUMATOLOGICAL: Denies any joint pain, swelling, or any muscle pain. ENDOCRINE: Denies any polyuria or polydipsia. PHYSICAL EXAMINATION: GENERAL: The patient is alert and oriented x 0 ill appearance, generalized weakness HEENT: Pupils are round and equally reacting to light. EOMI. laceration NOTED CARDIOVASCULAR: S1 and S2 present. No murmurs, rubs, or gallops. PULMONARY: Chest is clear to auscultation, no wheezing or crackles. ABDOMEN: Soft, nontender, nondistended, normoactive bowel sounds. No palpable organomegaly. MUSCULOSKELETAL: No joint swelling or deformity. EXTREMITIES: No cyanosis, clubbing, or pedal edema. NEUROLOGICAL: Gross examination limited secondary to disorientation nonpurposeful movement of upper and lower extremity no abrasions noted on skin present on admission, temperature laceration on lip noted Past Medical History Past Medical History: Hypertension History of Any Multi-Drug Resistant Organisms: None Reported Past Surgical History: Section, Hysterectomy, Orthopedic Surgery Additional Past Surgical History / Comment(s): left foot Past Psychological History: Anxiety, Depression Smoking Status: Current every day smoker Past Alcohol Use History: Abuse, Daily, Heavy Past Drug Use History: None Reported Medications and Allergies Home Medications Medication Instructions Recorded Confirmed Type Brimonidine Tartrate [Alphagan P 1 drop BOTH EYES BID 09/09/23 09/09/23 History 0.2% Ophth Soln] Multivitamins, Thera [Multivitamin 1 tab PO DAILY 09/09/23 09/09/23 History (formulary)] Allergies Allergy/AdvReac Type Severity Reaction Status Date / Time No Known Allergies Allergy Verified 09/09/23 16:22 Physical Exam Vitals: Vital Signs Temp Pulse Pulse Resp BP BP Pulse Ox 09/10/23 01:59 98.8 F 89 18 112/66 93 L 09/09/23 19:30 98.6 F 105 H 16 152/87 98 09/09/23 13:46 100 18 140/90 97 09/09/23 10:25 98 F 105 H 18 126/75 98 Intake and Output 09/09/23 09/10/23 09/10/23 22:59 06:59 14:59 Other: Voiding Method Toilet Results CBC & Chem 7: 09/10/23 09:43 09/10/23 09:43 Labs: Abnormal Lab Results - Last 24 Hours (Table) 09/09/23 09/09/23 09/09/23 Range/Units 10:42 10:42 11:06 MCV 110.1 H (80.0-100.0) fL MCH 38.8 H (25.0-35.0) pg Macrocytosis Marked A Sodium 134 L (137-145) mmol/L Carbon Dioxide 21 L (22-30) mmol/L BUN 6 L (7-17) mg/dL AST 178 H (14-36) U/L ALT 111 H (4-34) U/L Creatine Kinase 201 H (30-135) U/L Urine Appearance Cloudy H (Clear) Urine Protein Trace H (Negative) Urine Ketones 1+ H (Negative) Ur Squamous Epith Cells 13 H (0-4) /hpf Urine Bacteria Rare H (None) /hpf Hyaline Casts 10 H (0-2) /lpf Urine Mucus Many H (None) /hpf U Marijuana (THC) Screen Detected H (NotDetected) Thrombosis Risk Factor Assmnt - DVT/VTE Prophylaxis DVT/VTE Prophylaxis: Mechanical Prophylaxis ordered Assessment and Plan Assessment: Assessment and plan * Alcohol use disorder with withdrawal * Recurrent falls with acute subdural hematoma right tentorium * Generalized debility and weakness * Falls secondary to gait instability * Acute hyponatremia * Transaminitis secondary to alcohol use * In regards to alcohol use disorder continue patient on Ciwa protocol, use Ativan as needed, continue thiamine and multivitamin supplementation * In regards to recurrent falls and subdural hematoma neurosurgery was contacted and Liane Scott. Plan discussed with Dr. Flores. Patient transferred to hospitalist service Dr. Franz will be the accepting physician patient family was notified patient's son was called and notified about the events and transferred * In regards to generalized weakness, falls maintain maximum fall precautions while inpatient, CT head and cervical spine ordered secondary to fall while in ED despite maximum fall precautions * In regards to acute hyponatremia continue with fluid resuscitation follow-up on serum sodium levels * Regards to transaminitis secondary to alcohol-induced follow-up on liver profile * CODE STATUS is full code * Patient will need physical therapy occupational therapy evaluation once alcohol detox is complete Time with Patient: Greater than 30
--- NOTE | 2023-09-10 15:12 | P.DS ---
Providers Date of admission: 09/09/23 15:11 Expected date of discharge: 09/10/23 Attending physician: Aga Solo Consults: 09/10/23 10:37 Consult Physician Urgent Consulting Provider: Alex Steward Consult Reason/Comments: AMS, Subdural hematoma Do you want consulting provider notified?: Yes Primary care physician: Stated None Hospital Course: * 68-year-old patient with past medical history significant for hypertension, history of alcohol use disorder was brought into the emergency department with intention to detox. Patient was checked again to [facility] early in the day however she was noted to be too weak and was titrated to emergency for withdrawal detox and physical therapy assessment. Patient has been progressively weak and unable to ambulate family which has been ongoing for several weeks. Patient previously had gone through detox which was effective however she never did rehab after that. Patient is noted to be drinking about 1-1/2 bottles of wine every day and has been going on for multiple years. The time of presentation in ER initial workup obtained included CBC which were WBC of 4.7 hemoglobin 15.3 platelet 154 Serum chemistry obtained sodium 134 potassium 4.6B UN 6 creatinine 0.66 AST 178 ALT 111. Induction obtained positive for marijuana serum alcohol level 123 Patient was admitted with alcohol withdrawal protocol During the hospitalization patient remained in ER, patient had been having multiple falls on admission was noted to have multiple skin abrasions patient had another episode in ER as well. A CT head and cervical spine was obtained to rule out acu intracranial process * CT head did show intracranial subdural hemorrhage son was contacted and notified about the results and the potential need for transfer Deb TubbsTal was initiated in ER and patient to be transferred to [facility] REVIEW OF SYSTEMS: Generalized weakness, tremors, CONSTITUTIONAL: No fever, no malaise, no fatigue. HEENT: No recent visual problems or hearing problems. Denied any sore throat. CARDIOVASCULAR: No chest pain, orthopnea, PND, no palpitations, no syncope. PULMONARY: No shortness of breath, no cough, no hemoptysis. GASTROINTESTINAL: No diarrhea, no nausea, no vomiting, no abdominal pain. NEUROLOGICAL: No headaches, no weakness, no numbness. HEMATOLOGICAL: Denies any bleeding or petechiae. GENITOURINARY: Denies any burning micturition, frequency, or urgency. MUSCULOSKELETAL/RHEUMATOLOGICAL: Denies any joint pain, swelling, or any muscle pain. ENDOCRINE: Denies any polyuria or polydipsia. PHYSICAL EXAMINATION: GENERAL: The patient is alert and oriented x 0 ill appearance, generalized weakness HEENT: Pupils are round and equally reacting to light. EOMI. laceration NOTED CARDIOVASCULAR: S1 and S2 present. No murmurs, rubs, or gallops. PULMONARY: Chest is clear to auscultation, no wheezing or crackles. ABDOMEN: Soft, nontender, nondistended, normoactive bowel sounds. No palpable organomegaly. MUSCULOSKELETAL: No joint swelling or deformity. EXTREMITIES: No cyanosis, clubbing, or pedal edema. NEUROLOGICAL: Gross examination limited secondary to disorientation nonpurposeful movement of upper and lower extremity no abrasions noted on skin present on admission, temperature laceration on lip noted Assessment: Assessment and plan Alcohol use disorder with withdrawal Recurrent falls with acute subdural hematoma right tentorium Generalized debility and weakness Falls secondary to gait instability Acute hyponatremia Transaminitis secondary to alcohol use In regards to alcohol use disorder continue patient on Ciwa protocol, use Ativan as needed, continue thiamine and multivitamin supplementation In regards to recurrent falls and subdural hematoma neurosurgery was contacted and Liane [place]. Plan discussed with Dr. Flores. Patient transferred to hospitalist service Dr. Franz will be the accepting physician patient family was notified patient's son was called and notified about the events and transferred In regards to generalized weakness, falls maintain maximum fall precautions while inpatient, CT head and cervical spine ordered secondary to fall while in ED despite maximum fall precautions In regards to acute hyponatremia continue with fluid resuscitation follow-up on serum sodium levels Regards to transaminitis secondary to alcohol-induced follow-up on liver profile CODE STATUS is full code, patient transferred to [facility] for neurosurgery evaluation Patient Condition at Discharge: Undetermined Plan - Discharge Summary New Discharge Prescriptions: No Action Brimonidine Tartrate [Alphagan P 0.2% Ophth Soln] 1 drop BOTH EYES BID Multivitamins, Thera [Multivitamin (formulary)] 1 tab PO DAILY Discharge Medication List Brimonidine Tartrate [Alphagan P 0.2% Ophth Soln] 1 drop BOTH EYES BID 09/09/23 [History] Multivitamins, Thera [Multivitamin (formulary)] 1 tab PO DAILY 09/09/23 [History] Follow up Appointment(s)/Referral(s): None,Stated [Primary Care Provider] - 1-2 days Discharge Disposition: TRANSFER TO SNF/ECF
[2023-09-11] MEDS ORDERED: ENOXAPARIN 40 MG/0.4 ML SYRINGE SQ SCH (09:00)
== END 2023-09-10 13:22 ==
LOC: EC 10:20 → 6NMEDSUR 15:11
PROVIDERS: ADMIT Hospitalist; ATTEND Hospitalist
DX: F10.239 Alcohol dependence with withdrawal, unspecified (principal); E87.1 Hypo-osmolality and hyponatremia; I10 Essential (primary) hypertension; R74.01 Elevation of levels of liver transaminase levels; S01.511A Laceration without foreign body of lip, initial encounter; S06.5XAA Traumatic subdural hemorrhage with loss of consciousness status unknown, initial encounter; T14.8XXA Other injury of unspecified body region, initial encounter; W19.XXXA Unspecified fall, initial encounter; Y90.6 Blood alcohol level of 120-199 mg/100 ml; R29.6 Repeated falls; F32.A Depression, unspecified; F41.9 Anxiety disorder, unspecified; F17.200 Nicotine dependence, unspecified, uncomplicated; R26.89 Other abnormalities of gait and mobility; R53.81 Other malaise; Z71.6 Tobacco abuse counseling; Z79.899 Other long term (current) drug therapy; Z98.891 History of uterine scar from previous surgery; Z90.710 Acquired absence of both cervix and uterus; Z98.890 Other specified postprocedural states
CPT/HCPCS: 96376; 96361 ×2; 96372; 96374; 99285; 36415; 80053 ×2; 82550; 83735 ×2; 84100; 85025 ×2; 81001; 80306; 72125; 70450; G0378 ×2; G0480; J2060; J3411; 80320

== ENCOUNTER → 2023-11-24 | Outpatient (CLI) | payer MEDICARE ==
--- NOTE | 2023-11-27 13:02 | CT ---
EXAMINATION TYPE: CT brain wo con CT DLP: 1054.2 mGycm, Automated exposure control for dose reduction was used. DATE OF EXAM: 11/24/2023 1:40 PM COMPARISON: . 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 Contrast used: None. Oral contrast used: None. FINDINGS: Brain: Extra-axial spaces: No abnormal extra-axial fluid collections. Ventricular system: Within normal limits Cerebral parenchyma: No acute intraparenchymal hemorrhage or mass effect. The glover-white junction is well differentiated. Scattered hypoattenuating areas are seen within the white matter. Cerebellum: Unremarkable. Mass effect: No evidence of midline shift. Intracranial vasculature: unremarkable Soft tissues: Normal. Calvarium/osseous structures: No depressed skull fracture. Paranasal sinuses and mastoid air cells: Mild scattered paranasal sinus disease. Visualized orbits: Orbital contents are intact. IMPRESSION: No acute intracranial process. No residual subdural hematoma is appreciated.
== END | disposition home or self-care (01) ==
LOC: RADCTMAIN 13:20
PROVIDERS: ATTEND Psychiatry & Neurology Neurology
DX: S06.5X0A Traumatic subdural hemorrhage without loss of consciousness, initial encounter (principal); F10.231 Alcohol dependence with withdrawal delirium; R41.82 Altered mental status, unspecified
CPT/HCPCS: 70450

== ENCOUNTER → 2024-02-26 | Outpatient (CLI) | payer MEDICARE ==
--- NOTE | 2024-02-26 12:18 | US ---
EXAMINATION TYPE: US liver DATE OF EXAM: 02/26/2024 COMPARISON: NONE CLINICAL INDICATION: Female, 69 years old with history of K76.9 LIVER DISEASE, UNSPECIFIED; pt states she had an alcohol problem for a few years TECHNIQUE: Multiple sonographic images of the right upper quadrant are obtained. FINDINGS: EXAM MEASUREMENTS: Liver Length: 12.4 cm Gallbladder Wall: 0.16 cm CBD: 0.37 cm Right Kidney: 11.3 x 4.6 x 4.6 cm RESEARCH ATTORNEY NOTES: Pancreas: duct measuring 1.8mm. Parts seen appear wnl Liver: no obvious mass seen Gallbladder: echogenic avascular area seen in fundus measuring 1.2cm Evidence for sonographic Zhong's sign: No CBD: wnl Right Kidney: wnl IMPRESSION: 1. No evidence for acute process. 2. Cholelithiasis.
== END | disposition home or self-care (01) ==
LOC: RADUSWWP 07:18
PROVIDERS: ATTEND Family Medicine
DX: K80.20 Calculus of gallbladder without cholecystitis without obstruction (principal); K76.9 Liver disease, unspecified
CPT/HCPCS: 76705